=== PATIENT | female | born 1940 | race Caucasian/White ===

== ENCOUNTER 2016-09-15 11:23 | Day surgery (SDC) | payer OTHER ==
[~2016-09-15] VITALS: Ht 165.1 cm; Wt 54.0 kg
[2016-09-15 11:52] VITALS: BP 124/83
[2016-09-15] MEDS ORDERED: LOSA25TA5 PO (11:57)
[2016-09-15] MEDS ORDERED: VIT1CAPS42 PO (11:57)
[2016-09-15] MEDS ORDERED: CYAN10005 PO (11:57)
[2016-09-15] MEDS ORDERED: LACTATED RINGERS 1,000 ML IV SCH (11:57)
[2016-09-15] MEDS ORDERED: SERT50TA5 PO (11:57)
[2016-09-15] MEDS ORDERED: TEMA30CA PO (11:57)
[2016-09-15] MEDS ORDERED: MULT-6 PO (11:57)
[2016-09-15] MEDS ORDERED: ASPI-496 PO (11:57)
[2016-09-15] MEDS ORDERED: FENTANYL PF 100 MCG/2ML ONE (12:19)
[2016-09-15] MEDS ORDERED: NEOSTIGMINE 1 MG/ML, 10ML ONE (12:32)
[2016-09-15] MEDS ORDERED: PROPOFOL 10 MG/ML, 20ML ONE (12:32)
[2016-09-15] MEDS ORDERED: ROCURONIUM 10 MG/ML ONE (12:32)
[2016-09-15] MEDS ORDERED: GLYCOPYRROLATE 0.2MG/1ML ONE (12:32)
== END 2016-09-15 16:25 | disposition home or self-care (01) ==
LOC: OUT 11:23
PROVIDERS: ATTEND Internal Medicine Geriatric Medicine
DX: K29.50 Unspecified chronic gastritis without bleeding (principal); K86.89 Other specified diseases of pancreas; I10 Essential (primary) hypertension; Z72.89 Other problems related to lifestyle
CPT/HCPCS: 43239; 43259; 88305; 93005; J2704; J2710; J3010; J7120; J3490